=== PATIENT | male | born 1985 | race Caucasian/White ===

== ENCOUNTER 2024-10-31 07:09 | Emergency (ER) | payer OTHER, SELFPAY ==
--- NOTE | ~2024-10-31 | CT_ITS ---
EXAMINATION: CT abdomen pelvis w con DATE: 10/31/2024 08:40 INDICATION: Left lower quadrant abdominal pain. TECHNIQUE: Computed tomography (CT) of the abdomen and pelvis was performed with 100 mL Omnipaque 350 intravenous contrast. Automated exposure control and iterative reconstruction technique were employed. The dose-length product was 396.25 mGy-cm. COMPARISON: None. FINDINGS: The visualized portions of the lung bases demonstrate mild atelectasis. No pleural effusion. The heart size is normal. No pericardial effusion. There is a 7 mm cyst in the liver. The gallbladder, spleen, pancreas, adrenal glands, and right kidney are normal. There is a 7 mm cyst in left kidne y. There are bilateral inguinal hernias containing fat. There is wall thickening of the descending colon and proximal sigmoid colon with adjacent fat stranding, consistent with colitis. There are no dilated loops of bowel. The appendix is normal. There are no pathologically enlarged lymph nodes. There is no free intraperitoneal fluid. There is no significant stenosis of celiac axis, superior mesenteric artery, or inferior mesenteric artery. There is an umbilical hernia containing fat. There is mild thoracic and lumbar spondylosis. There is mild chronic anterior wedging of multiple vertebral bodies. IMPRESSION: 1. Colitis involving descending colon and proximal sigmoid colon. Reviewed, dictated and finalized at location E.
[2024-10-31 07:14] VITALS: BP 114/78; PULSE 94; RESP 16; TEMP 36.4; O2SAT 100
[2024-10-31 07:30] VITALS: BP 114/78; PULSE 100; RESP 20; O2SAT 98
--- NOTE | 2024-10-31 07:35 | ED_ITS ---
HPI - General Adult General Chief complaint: Abdominal Pain Stated complaint: abd pain, blood in stool Time Seen by Provider: 10/31/24 07:15 History of Present Illness HPI narrative: 39-year-old male present to the emergency department for evaluation for left lower quadrant abdominal pain. Patient states pain has been ongoing for the last 2 days. Patient states he was also having some bloody stools. Patient denies any symptoms similar to this previously. Patient denies any prior history of diverticulitis. Patient denies any prior history of ureteral calculi. Patient is not on blood thinners. Patient denies any significant past medical history. Related Data Allergies Allergy/AdvReac Type Severity Reaction Status Date / Time latex AdvReac Mild Rash Verified 10/31/24 07:29 Review of Systems 2 Review of Systems: All systems reviewed & are unremarkable except as noted in HPI and below Exam 2 Narrative: APPEARANCE: Well appearing, no pain, no distress, well-nourished. HEAD: normocephalic, atraumatic. EYES: PERRLA/EOMI, conjunctivae clear. NOSE: Normal no drainage EARS:TMS clear with good light reflex. THROAT: Pharynx clear, no exudate. NECK: Supple. No adenopathy, no masses. RESPIRATORY: Airway patent, respirations nonlabored. Clear to auscultation bilaterally, no rales, rhonchi, wheezing. CARDIOVASCULAR: Regular rate and rhythm without murmurs rubs or gallops. ABDOMINAL: No significant left lower quadrant tenderness or left flank tenderness to palpation, patient does report left lower quadrant pain MUSCULOSKELETAL: Moves all extremities. Strength/ROM intact, No edema, No calf tenderness. NEURO: Alert. Cranial nerves II through XII intact. Good gait. Good coordination SKIN: Warm, dry. Normal Color Course Vital Signs Vital signs: Vital Signs Temperature 97.6 F 10/31/24 07:14 Pulse Rate 94 10/31/24 07:14 Respiratory Rate 16 10/31/24 07:14 Blood Pressure 114/78 10/31/24 07:14 Pulse Oximetry 100 10/31/24 07:14 Oxygen Delivery Room Air 10/31/24 07:14 Temperature 97.6 F 10/31/24 07:14 Pulse Rate 72 10/31/24 09:07 Respiratory Rate 16 10/31/24 09:07 Blood Pressure 130/74 10/31/24 09:07 Pulse Oximetry 98 09/21/25 09:07 Oxygen Delivery Room Air 10/31/24 07:14 Medical Decision Making MDM Narrative Medical decision making narrative: 31-year-old male presented to the emergency department for evaluation left lower quadrant abdominal pain and intermittent rectal bleeding. Patient is afebrile with no leukocytosis hemoglobin 16.1. Patient has an INR 1.0. Patient has no acute abnormalities on his CMP UA was negative fracture. CT scan was concerning for colitis of the descending and proximal colon. Patient was started on antibiotics in the emergency department. Patient was discharged home with instructions to follow a clear liquid diet and provided distal antibiotics. Patient was updated on the results of the workup. Patient was encouraged of close follow-up with his GI physician. Differential Diagnosis Differential Diagnosis: Colitis, diverticulitis, hemorrhoid, internal hemorrhoid, external hemorrhoid, upper GI bleed, lower GI bleed Vital Signs Vital Signs: Vital Signs Temperature 97.6 F 10/31/24 07:14 Pulse Rate 94 10/31/24 07:14 Respiratory Rate 16 10/31/24 07:14 Blood Pressure 114/78 10/31/24 07:14 Pulse Oximetry 100 10/31/24 07:14 Oxygen Delivery Room Air 10/31/24 07:14 Temperature 97.6 F 10/31/24 07:14 Pulse Rate 72 10/31/24 09:07 Respiratory Rate 16 10/31/24 09:07 Blood Pressure 130/74 10/31/24 09:07 Pulse Oximetry 98 10/31/24 09:07 Oxygen Delivery Room Air 10/31/24 07:14 Lab Data Lab results reviewed: Yes I reviewed the patient's lab results. 10/31/24 07:29 10/31/24 07:29 Labs: Lab Results 10/31/24 10/31/24 Range/Units 07:29 08:24 WBC 10.0 (4.5-10.0) K/mm3 RBC 5.51 (4.6-6.20) M/mm3 Hgb 16.1 (14.0-18.0) g/dL Hct 48.4 (42.0-52.0) % MCV 87.8 (80-100) fl MCH 29.2 (26-34) pg MCHC 33.3 (32-36) g/dl RDW 11.7 (11.5-14.5) % Plt Count 262 (150-375) k/mm3 MPV 9.1 (7.4-10.4) fl Immature Gran % (Auto) 0.5 (0-0.5) % Neut % (Auto) 68.1 (45.5-73.1) % Lymph % (Auto) 20.0 (18.3-44.2) % Mobile % (Auto) 7.7 (2.6-8.5) % Eos % (Auto) 3.2 (0-4.4) % Baso % (Auto) 0.5 (0.2-1.2) % Lymph # (Auto) 2.00 (0.9-3.2) K/mm3 Mobile # (Auto) 0.8 H (0.1-0.6) K/mm3 Eos # (Auto) 0.3 (0-0.3) K/mm3 Baso # (Auto) 0.1 (0.0-0.1) K/mm3 Abs Immat Gran (auto) 0.05 H (0.00-0.031) K/mm3 Absolute Neuts (auto) 6.8 H (1.3-6.7) K/mm3 Absolute Nucleated RBC 0.000 (0.0-0.012) K/mm3 Nucleated RBC % 0.0 (0.0-0.2) % PT 13.6 (11.1-14.7) Seconds INR 1.0 APTT 24.5 (22.3-36.8) Seconds Sodium 137 (137-145) mmol/L Potassium 4.3 (3.4-5.0) mmol/L Chloride 103 (98-107) mmol/L Carbon Dioxide 24 (22-30) mmol/L Anion Gap 10 (4-12) mmol/L BUN 18 (9-20) mg/dL Creatinine 0.96 (0.7-1.3) mg/dL Estim Creat Clear Calc 83 ml/min Estimated GFR > 60 (59 - ) Glucose 110 (65-110) mg/dL Lactic Acid 1.1 (0.7-2.0) mmol/L Calcium 9.3 (8.4-10.2) mg/dL Total Bilirubin 1.0 (0.2-1.3) mg/dL AST 40 (17-59) U/L ALT 46 (6-50) U/L Alkaline Phosphatase 100 (38-126) U/L Total Protein 7.4 (6.3-8.2) g/dL Albumin 4.2 (3.5-5.1) g/dL Urine Color Yellow (Yellow) Urine Appearance Cloudy H (Clear) Urine pH 7.5 (5.0-9.0) Ur Specific [place] 1.015 (1.001-1.035) Urine Protein Negative (Negative) mg/dL Urine Glucose (UA) Negative (Negative) mg/dL Urine Ketones Negative (Negative) mg/dL Ur Blood (Man) Negative (Negative) Urine Nitrate Negative (Negative) Urine Bilirubin Negative (Negative) Urine Urobilinogen 0.2 (<2.0) mg/dL Leukocyte Esterase Rfl Negative (Negative) ERNESTO/UL Urine RBC 0-2 (0-2) /hpf Urine WBC 0-5 (0-3) /hpf Ur Squamous Epith Cells None seen (Few) /hpf Urine Bacteria None seen /hpf Urine Casts 0-2 Imaging Data Radiologist's impression: Impressions Abdomen/Pelvis CT 10/31/24 08:43 IMPRESSION: 1. Colitis involving descending colon and proximal sigmoid colon. Discharge Plan Discharge Clinical Impression: Colitis Patient Disposition: Home Condition: Stable Instructions: Antibiotic Form, Clear Liquid Diet (ED), Abdominal Pain (ED), Colitis (ED) Additional Instructions: Clear liquid diet for the next 1-3 days. Antibiotic as directed until completed. Have close follow-up with your primary care physician. If you have any worsening symptoms then please call or return to the emergency department. Patient Language: Cuban Prescriptions: New amoxicillin-pot clavulanate 875-125 mg tablet 1 tablet PO Q12H 7 Days Qty: 14 0RF Follow-up/Referrals: PHYSICIAN NOT ON STAFF,NONSTAFF [Primary Care Provider] Jeanmarie Dove MD [Physician, Gastroenterology]
[2024-10-31] MEDS: LACTATED RINGERS 1,000 ML 999 ML IV CONT (07:41)
[2024-10-31 07:45] LABS: Alanine Aminotransferase 46 U/L (6-50); Albumin Level 4.2 g/dL (3.5-5.1); Alkaline Phosphatase 100 U/L (38-126); Anion Gap 10 mmol/L (4-12); Aspartate Amino Transferase 40 U/L (17-59); Bilirubin,Total 1.0 mg/dL (0.2-1.3); Blood Urea Nitrogen 18 mg/dL (9-20); Calcium 9.3 mg/dL (8.4-10.2); Carbon Dioxide 24 mmol/L (22-30); Chloride 103 mmol/L (98-107); Estimated CRCL calculation 83 ml/min; Estimated Glomerular Filt Rate > 60; Glucose 110 mg/dL (65-110); Potassium 4.3 mmol/L (3.4-5.0); Sodium 137 mmol/L (137-145); Total Protein 7.4 g/dL (6.3-8.2)
[2024-10-31 07:48] LABS: INR 1.0; Partial Thromboplastin Time 24.5 Seconds (22.3-36.8); Prothrombin Time 13.6 Seconds (11.1-14.7)
[2024-10-31 07:58] LABS: Hematocrit 48.4 % (42.0-52.0); Hemoglobin 16.1 g/dL (14.0-18.0); Immature Granulocyte Percent A 0.5 % (0-0.5); Lymphocytes Absolute Auto 2.00 K/mm3 (0.9-3.2); Mean Corpuscular HGB Conc 33.3 g/dl (32-36); Mean Corpuscular Hemoglobin 29.2 pg (26-34); Mean Corpuscular Volume 87.8 fl (80-100); Nucleated Red Blood Cells Absolute Auto 0.000 K/mm3 (0.0-0.012); Nucleated Red Blood Cells Perc 0.0 % (0.0-0.2); Platelet Count Result 262 k/mm3 (150-375); Red Blood Count 5.51 M/mm3 (4.6-6.20); White Blood Count 10.0 K/mm3 (4.5-10.0)
[2024-10-31 08:32] LABS: Add Urine Microscopic? YES; Appearance Urine Cloudy (Clear); Glucose Urine UA Negative (Negative); Leukocyte Esterase Ur Negative LEU/UL (Negative); Nitrate Urine Negative (Negative); Non Pathogenic Casts 0-2; Specific Grav Ur 1.015 (1.001-1.035)
[2024-10-31 09:07] VITALS: BP 130/74; PULSE 72; RESP 16; O2SAT 98
== END 2024-10-31 09:08 | disposition home or self-care (01) ==
PROVIDERS: Emergency Provider Emergency Medicine
DX: K52.9 Noninfective gastroenteritis and colitis, unspecified (principal)
CPT/HCPCS: 36415; 74177; 80053; 81001; 83605; 85025; 85610; 85730; 96360; 99284; A9270; J7120; Q9967